=== PATIENT | female | born 1990 | race Two or more races ===

== ENCOUNTER 2021-05-11 03:47 | Emergency (ER) | payer SELFPAY ==
[~2021-05-11] VITALS: Ht 162.6 cm; Wt 58.9 kg
[2021-05-11 03:58] VITALS: BP 97/65
--- NOTE | 2021-05-11 06:21 | NUR ---
Patient given discharge instructions and they have confirmed that they understand the instructions. Patient ambulatory with steady gait. NAD, all questions answered appropriately, denies additional needs at this time. No personal belongings left in room after discharge.
== END 2021-05-11 06:29 | disposition home or self-care (01) ==
LOC: EDSEX 03:47 → ED 06:20
DX: U07.1 COVID-19 (principal); J20.8 Acute bronchitis due to other specified organisms; R11.2 Nausea with vomiting, unspecified
CPT/HCPCS: 99283; U0003; U0005